=== PATIENT | female | born 1975 | race Caucasian/White ===

== ENCOUNTER → 2016-05-13 | Outpatient (CLI) | payer BC ==
--- NOTE | 2016-05-14 10:21 | RADRPT ---
PROCEDURE: US OB. CLINICAL INDICATION: Size and dates, pain TECHNIQUE: Transabdominal and transvaginal views of the pelvis were obtained. COMPARISON: No prior studies are available for comparison. FINDINGS: There is a single intrauterine gestation with a CRL measuring 0.5 cm, corresponding to a gestational age of 6 weeks and 1 day. The yolk sac is abnormal. The heart rate is absent. There is a hypoechoic fluid collection adjacent to the gestational sac, consistent with subchorioni c hemorrhage. The ovaries are not visualized. There is no free fluid. RPTAT: AA IMPRESSION: Single intrauterine with an estimated gestational age of 6 weeks and 1 day, based on ultra sound measurements. No heart tones are present, suspicious for demise. However, early is not comp letely excluded. Close follow-up is recommended. Focal area of subchorionic hemorrhage. .Duncan Yang MD, Date Time Electronically viewed and signed by .Duncan Yang MD, on 05/14/2016 10:21 .S/
== END | disposition home or self-care (01) ==
LOC: U/S 15:10
PROVIDERS: ATTEND Internal Medicine
DX: Z36 Encounter for antenatal screening of mother (principal); Z3A.01 Less than 8 weeks gestation of pregnancy
CPT/HCPCS: 76801; 76817